=== PATIENT | male | born 1985 | race Caucasian/White ===

== ENCOUNTER 2022-12-01 09:05 | Outpatient (CLI) | payer BC, SELFPAY ==
[2022-12-01 09:45] LABS: Basophils Percent Auto 0.4 % (0.2-1.2); Eosinophils Absolute Auto 0.5 K/mm3 (0-0.3); Eosinophils Percent Auto 8.3 % (0-4.4); Hematocrit 44.4 % (42.0-52.0); Hemoglobin 15.5 g/dL (14.0-18.0); Immature Granulocyte Absolute 0.01 K/mm3 (0.00-0.031); Immature Granulocyte Percent A 0.2 % (0-0.5); Lymphocytes Absolute Auto 1.32 K/mm3 (0.9-3.2); Lymphocytes Percent Auto 23.3 % (18.3-44.2); Mean Corpuscular HGB Conc 34.9 g/dl (32-36); Mean Corpuscular Hemoglobin 30.5 pg (26-34); Mean Corpuscular Volume 87.4 fl (80-100); Mean Platelet Volume 9.4 fl (7.4-10.4); Monocytes Absolute Auto 0.5 K/mm3 (0.1-0.6); Monocytes Percent Auto 9.5 % (2.6-8.5); Neutrophils Absolute Auto 3.3 K/mm3 (1.3-6.7); Neutrophils Percent Auto 58.3 % (45.5-73.1); Platelet Count Result 195 k/mm3 (150-375); Red Blood Count 5.08 M/mm3 (4.6-6.20); Red Cell Distribution Width 11.9 % (11.5-14.5); White Blood Count 5.7 K/mm3 (4.5-10.0)
[2022-12-01 09:52] LABS: Alanine Aminotransferase 28 U/L (6-50); Albumin Level 4.1 g/dL (3.5-5.1); Alkaline Phosphatase 45 U/L (38-126); Anion Gap 3 mmol/L (8-16); Aspartate Amino Transferase 26 U/L (17-59); Bilirubin,Total 0.5 mg/dL (0.2-1.3); Blood Urea Nitrogen 19 mg/dL (9-20); Calcium 8.5 mg/dL (8.4-10.2); Carbon Dioxide 32 mmol/L (22-30); Chloride 105 mmol/L (98-107); Cholesterol 160 mg/dL (0-200); Estimated Glomerular Filt Rate > 60; Glucose 99 mg/dL (65-110); HDL Direct 40 mg/dL; Potassium 4.3 mmol/L (3.4-5.0); Sodium 140 mmol/L (137-145); Triglycerides 93 mg/dL (<150)
[2022-12-01 10:03] LABS: LDL Cholesterol Direct 89 mg/dL
== END 2022-12-01 09:06 | disposition home or self-care (01) ==
LOC: ANHLAB 09:12
PROVIDERS: PCP Nurse Practitioner Family; Visit Provider Nurse Practitioner Family
DX: R07.89 Other chest pain (principal)
CPT/HCPCS: 36415; 80053; 80061; 84443; 85025

== ENCOUNTER 2022-12-03 15:02 | Outpatient (CLI) | payer BC, SELFPAY ==
--- NOTE | 2022-12-03 | ECG_ITS ---
Measurements Intervals [place] Rate: 81 P: 51 NC: 145 QRS: 12 QRSD: 98 T: 26 QT: 343 QTc: 398 Interpretive Statements SINUS RHYTHM NORMAL ECG NO PREVIOUS ECG AVAILABLE FOR COMPARISON Electronically Signed On 12-04-2022 10:01:44 BRIQUETTE MACHINE OPERATOR by Wilfredo Thomas M.D.
== END 2022-12-03 15:03 | disposition home or self-care (01) ==
PROVIDERS: PCP Nurse Practitioner Family; Visit Provider Nurse Practitioner Family
DX: R07.89 Other chest pain (principal)
CPT/HCPCS: 93005

== ENCOUNTER 2022-12-31 14:11 | Outpatient (CLI) | payer BC, SELFPAY ==
--- NOTE | 2022-12-31 | ECHO_ITS ---
Patient Info Name: Mart Corral Age: 37 years : 1985 Gender: Male Ht: 69 in Wt: 192 lbs BSA: 2.08 m2 HR: 88 bpm BP: 130 / 94 mmHg Heart Rhythm: Sinus Rhythm Technical Quality: Fair Exam Date: 12/31/2022 2:59 PM Exam Location: [facility] Pulmonary Patient Status: Outpatient Admit Date: 12/31/2022 Staff Ordering Physician: PhuMelva Change Management: Danika Castellano RDCS Attending Provider: Phu, Melva DONG Referring Physician: Phu POLLOCK; Exam Type: CA echo doppler color flow Study Info Indications R07.9 - Chest pain, unspecified Complete two-dimensional, color flow and Doppler transthoracic echocardiogram is performed. Summary 1. Complete two-dimensional, color flow and Doppler transthoracic echocardiogram is performed. 2. Left ventricular chamber dimension is normal. 3. Left ventricular systolic function is normal, estimated at 65-70%. 4. There is mildly increased left ventricular wall thickness. 5. The left ventricular diastolic function is grade I diastolic dysfunction. 6. Right ventricular systolic function is normal. 7. No significant valvular disease. Left Ventricle Left ventricular chamber dimension is normal. Left ventricular systolic function is normal, estimated at 65-70%. There is mildly increased left ventricular wall thickness. The left ventricular diastolic function is grade I diastolic dysfunction. Right Ventricle Right ventricular chamber dimension is normal. Right ventricular systolic function is normal. Left Atria Left atrial chamber dimension is normal. Right Atria Right atrial chamber dimension is normal. Atrial Septum Intact interatrial septum visualized by color flow imaging. Aortic Valve The aortic valve is probable trileaflet. There is no aortic valve stenosis. There is no aortic valve regurgitation. Pulmonic Valve The pulmonic valve is not well visualized. Mitral Valve The mitral valve has normal leaflets. There is no mitral valve stenosis. There is trace mitral valve regurgitation. Tricuspid Valve There is trace tricuspid valve regurgitation. Pericardium/Pleural There is no pericardial effusion. Inferior Vena Cava Normal inferior vena cava with >50% collapse upon inspiration consistent with normal right atrial pressure, 3 mmHg. Aorta The aortic root size at the sinus of Valsalva is normal. Left Ventricular Outflow Tract Name Value Normal LVOT 2D LVOT Diameter 2.0 cm LVOT Doppler LVOT Peak Gradient 4 mmHg LVOT Mean Gradient 2 mmHg LVOT VTI 17 cm LVOT VTI/AV VTI Ratio 0.7 LVOT Stroke Volume 57 ml LVOT CO 4.2 l/min LVOT CI 2.0 l/min/m2 Pulmonic Valve Name Value Normal RVOT Doppler
== END 2022-12-31 14:12 | disposition home or self-care (01) ==
PROVIDERS: PCP Nurse Practitioner Family; Visit Provider Nurse Practitioner Family
DX: R07.9 Chest pain, unspecified (principal)
CPT/HCPCS: 93306

== ENCOUNTER 2024-02-08 07:29 | Outpatient (CLI) | payer BC, SELFPAY ==
[2024-02-08 20:38] LABS: Hematocrit 48.6 % (42.0-52.0); Hemoglobin 15.2 g/dL (14.0-18.0); Mean Corpuscular HGB Conc 31.3 g/dl (32-36); Mean Corpuscular Hemoglobin 30.4 pg (26-34); Mean Corpuscular Volume 97.2 fl (80-100); Mean Platelet Volume 10.6 fl (7.4-10.4); Platelet Count Result 213 k/mm3 (150-375); Red Cell Distribution Width 12.6 % (11.5-14.5); White Blood Count 5.9 K/mm3 (4.5-10.0)
[2024-02-08 20:47] LABS: Alanine Aminotransferase 27 U/L (6-50); Albumin Level 4.6 g/dL (3.5-5.1); Alkaline Phosphatase 59 U/L (38-126); Anion Gap 4 mmol/L (4-12); Aspartate Amino Transferase 60 U/L (17-59); Bilirubin,Total 0.6 mg/dL (0.2-1.3); Blood Urea Nitrogen 27 mg/dL (9-20); Calcium 9.6 mg/dL (8.4-10.2); Carbon Dioxide 29 mmol/L (22-30); Chloride 107 mmol/L (98-107); Cholesterol 154 mg/dL (0-200); Estimated Glomerular Filt Rate > 60; Glucose 96 mg/dL (65-110); HDL Direct 47 mg/dL; Potassium 4.7 mmol/L (3.4-5.0); Sodium 140 mmol/L (137-145); Triglycerides 50 mg/dL (<150)
[2024-02-08 20:58] LABS: LDL Cholesterol Direct 84 mg/dL
[2024-02-08 21:16] LABS: Thyroid Stimulating Hormone 0.949 uIU/mL (0.465-4.680)
[2024-02-08 21:52] LABS: Folic Acid 8.7 ng/mL (2.76->20)
[2024-02-13 14:40] LABS: Testosterone Free 85.8 pg/mL (35.0-155.0); Testosterone Total 721 ng/dL (250-1100)
== END 2024-02-08 07:30 | disposition home or self-care (01) ==
LOC: ANHBWCLAB 07:31
PROVIDERS: PCP Nurse Practitioner Adult Health; Visit Provider Nurse Practitioner Adult Health
DX: R53.83 Other fatigue (principal); Z13.9 Encounter for screening, unspecified
CPT/HCPCS: 36415; 80053; 80061; 82607; 82746; 84402; 84403; 84443; 85027

== ENCOUNTER 2025-02-06 06:58 | Outpatient (CLI) | payer BC, SELFPAY ==
--- OUTSIDE RECORDS SUMMARY | 2025-02-06 07:01 | XMS_ITS | Referral Summary ---
Author Organization 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 Gender Identity Not on file Sexual Orientation Not on file Last Filed Vital Signs Vital Sign Reading Time Taken Comments Blood Pressure 127/91 08/17/2019 9:30 PM CDT Pulse 77 08/17/2019 9:30 PM CDT Temperature 36.4 C (97.6 F) 08/17/2019 4:48 PM CDT Respiratory Rate 20 08/17/2019 9:30 PM CDT Oxygen Saturation 97% 08/17/2019 9:30 PM CDT Inhaled Oxygen Concentration - - Weight 97.5 kg (215 lb) 08/17/2019 4:48 PM CDT Height 175.3 cm (5' 9 ) 08/17/2019 4:48 PM CDT Body Mass Index 31.75 08/17/2019 4:48 PM CDT Plan of Treatment Not on file Insurance [email or web address] [facility] WORKERS COMPENSATION GENERIC Care Teams Top Cager Relationship Specialty Start Date End Date No, Physician PCP - General 08/17/19
--- OUTSIDE RECORDS SUMMARY | 2025-02-06 07:01 | XMS_ITS | Continuity of Care Document ---
Author Organization [facility] [employer] [facility] Address [address] [place] [address] Phone Care Team Providers Care Patient Admitting Clerk Name Role Phone Wero Pereyra DMD Unavailable Unavailable Procedures Procedure Date Intraoral Periapical First Ishan 11 Limit Oral Eval-prob Focused OFFICE/OUTPATIENT VISIT, [facility] Advance Directives Directive Yes / No Effective Date File Name No Information Encounters Encounter Description Practice Location Reason(s) For Visit Diagnoses Date Provider Providers Copied on Encounter [facility] [employer] [facility], [address], [place], [place], [id number], tel:[phone] [facility] Dental examination [address], [place], [place], [id number], . tel:[phone] Referring Provider: Wero Garg, [address], [place], [address] . tel:[phone] OFFICE/OUTPAT IENT VISIT, [facility] [employer] [facility], [address], [place], [place], [id number], tel:[phone] Counts Include [facility] No Information 0 No Information Referring Provider: Oscar Spencer, [address], [place], [address] . tel:[phone] Family History Family Member Type Diagnosis Age At Onset No Information Payers Payer name Insurance type Covered green party ID Authorjohannaa cal(s) D [employer] CI [id number] Social History Type Description Quantity Date Captured Comments Sex Male Smoking Status No Information Chief Complaint And Reason For Visit No Information Reason For Referral Reason For Referral No Information History Of Present Illness Encounter Date Complaint History Of Prese nt Illness No Information Functional Status Date Functional Assessmen t No Information Instructions Date Instruction Additional Infor mation No Information Assessments Type Assessment Date No Information Patient Care Teams Name Effective Dates (start - stop) Status Members No Information
--- OUTSIDE RECORDS SUMMARY | 2025-02-06 07:01 | XMS_ITS | Continuity of Care Document ---
Author Organization [facility] Address [address] [place] [address] Phone Care Team Providers Care Syrup Maker Cook Name Role Phone Stevenson Burleson MD Unavailable Unavailable Allergies, Adverse Reactions, Alerts Substance Reaction Status Criticality No Known Allergies Active No Inform ation Medications Medication Instructions Dosage Effective Dates (start - stop) Status Comments ibuprofen 800 mg tablet take 1 Tablet by Oral route 3 times every day 1 Tablet - Active Procedures Procedure Date Office/outpatient visit,[facility] 2014 Special Casting Material (Plaster) Hand Metacarpal Fx Single,Trtmt W/o Rosales p Arm, Forearm Splint Application, Static Cast Supplies,Short Arm Splint,Plaster,A dult Advance Directives Directive Yes / No Effective Date File Name No Information Encounters Encounter Description Practice Location Reason(s) For Visit Diagnoses Date Provider Providers Copied on Encounter Office/outpat ient visit,[facility], [address] [place] [address], [id number], tel:[phone] [facility] hand (chief complaint) Pain In HandFx Metacarp Bone(s), Base - Closed Benjy Gamino. [address] [place] [address], [id number], . tel:[phone] Family History Family Member Type Diagnosis Age At Onset No Information Payers Payer name Insurance type Covered constitution party ID Authoriza tion(s) [facility] [id number] Social History Type Description Quantity Date Captured Comments Alcohol Use Details Unknown Caffeine Use Details Unknown Tobacco Use Status Smoking Status Current every day smoker Non-Smoking Tobacco Use Details : No Details Available : No Details Available Sex Male Vital Signs Date / Time: Height Weight BMI Pulse Rate Blood Pressure Temperature Respiratory Rate Body Surface Area Head Circumference Head Circ. Percentile Wt./Haseeb. Percentile BMI percentile Pulse Ox Inhaled Ox 9:35 AM 69.00 in 72.212 kg (159.20 lbs) 23.5 1 kg/m eter (2) 62 /min 129/85 mm[Hg] 98.10 F Chief Complaint And Reason For Visit From encounter dated '04/24/2015 09:00'. hand (chief complaint) Reason For Referral Reason For Referral No Information History Of Present Illness Encounter Date Complaint History Of Prese nt Illness hand Functional Status Date Functional Assessmen t No Information Instructions Date Instruction Additional Infor cain Patient was educated on the diagnosis and treatment plan. Related to Pain In Hand activities as tolera giuliana, no use lt hand, must keep splint dry,rtc in 4wks Related to Pain In Hand Assessments Type Assessment Date assessment Pain In Hand assessment Fx Metacarp Bone(s), Base - Clos ed Patient Care Teams Name Effective Dates (start - stop) Status Members No Information
--- OUTSIDE RECORDS SUMMARY | 2025-02-06 07:01 | XMS_ITS | Clinical Summary ---
Author Organization 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 Gender Identity Not on file Sexual Orientation Not on file Obstetrics History Last Filed Vital Signs Vital Sign Reading [...] 08/17/2019 4:48 PM CDT Plan of Treatment Health Maintenance Due Date Last Done Comments Depression Screening 1985 Hepatitis C Screening 1985 DTaP/Tdap/Td Vaccine (5 - Tdap) 02/09/1996 06/21/1990, 04/25/1986, 1985, Additional history exists Varicella Vaccines (1 of 2 - 13+ 2-dose series) 1998 Hepatitis B Screening 2003 Regular Well Visit/Exam 18-64 2003 Pneumococcal vaccine <65 (1 of 2 - PCV) 02/09/2004 Influenza Vaccine (Season Ended) 2025 HPV Vaccines Aged Out No longer eligi ble based on patient's age to complete this topic Insurance [employer] COMPENSATION GENERIC Care Teams Security Director Relationship Specialty Start Date End Date No, Physician PCP - General 08/17/19
--- OUTSIDE RECORDS SUMMARY | 2025-02-06 07:01 | XMS_ITS | Clinical Summary ---
Author Organization [employer] [facility] Address [address] [place] [address] Care Team Providers Care Biology Intern Name Role Phone Unavailable Primary Care Provider Unavailabl e Medications ALPRAZolam (XANAX) 0.5 mg tablet 10/27/2022 Activ e ibuprofen (MOTRIN) 800 mg tablet 11/27/2022 Activ e tiZANidine (ZANAFLEX) 4 mg Tablet 11/27/2022 Active Active Problems Problem Noted Date Diagnosed Date Chronic midline low back pain with left-sided sc iatica 12/01/2022 Degeneration of lumbar intervertebral disc 12/01 Other spondylosis with radiculopathy, lumbar reg ion 12/01/2022 Social History Tobacco Use Types Packs/Day Years Used Date Smoking Tobacco: Never Tobacco Cessation:Counseling Given: Not Answered Sex and Gender Information Value Date Recorded Sex Assigned at Not on file Legal Sex Male 3:07 PM RN FIRST ASSIST Gender Identity Not on file Sexual Orientation Not on file Last Filed Vital Signs Vital Sign Reading Time Taken Comments Blood Pressure 140/86 12/01/2022 2:22 PM RN FIRST ASSIST Pulse 106 12/01/2022 2:22 PM RN FIRST ASSIST Temperature - - Respiratory Rate - - Oxygen Saturation 98% 12/01/2022 2:22 PM RN FIRST ASSIST Inhaled Oxygen Concentration - - Weight 91.1 kg (200 lb 12.8 oz) 12/01/2022 2:22 PM RN FIRST ASSIST Height - - Body Mass Index - - Plan of Treatment Health Maintenance Due Date Last Done Comments DTAP/TDAP/TD VACCINES (1 - Tdap) 02/09/2004 HEPATITIS B VACCINES (1 of 3 - 19+ 3-dose series) 02/09/2004 INFLUENZA VACCINE (#1) 2024 HPV VACCINES Aged Out No longer eligi ble based on patient's age to complete this topic PNEUMOCOCCAL VACCINE 0-49 YEARS Aged Out No longer eligible based on patient's age to complete this topic Insurance [facility] BLUE ACCESS/TRUE BLUE PPO
--- OUTSIDE RECORDS SUMMARY | 2025-02-06 07:01 | XMS_ITS | Data Portability ---
Author Organization [facility] [facility], Main Office Address [address] [place] [address] Assessment No assessment recorded. Plan of Treatment Reminders Order Date Submit Date Provider Last Modified By Organization Details Last Modified Time Details Appointments None recorded. Lab None recorded. Referral None recorded. Procedures None recorded. Surgeries None recorded. Imaging None recorded. Medication Orders meloxicam 15 mg tablet 2022 023 [facility] #[id number], [address], [place], [place], [id number], 3 17:07:15 hydroxyzine HCl 25 mg tablet 2022 023 [facility] #[id number], [address], [place], [id number], 3 17:07:17 sertraline 25 mg tablet 2022 023 [facility] #[id number], [address], [place], [place], [id number], 3 17:07:16 meloxicam 15 mg tablet 2022 023 [facility] #[id number], [address], [place], [id number], 3 16:35:55 hydroxyzine HCl 25 mg tablet 2022 023 [facility] #[id number], [address] [place], [id number], 3 16:35:54 Patient TargetsNo targets recorded. Patient Instructions Encounter Date Encounter Id Patient Instructions Last Modified By Organization Details Last Modified Time 02/05/2023 [id number] Fu in 6 mo anxiety and back pain Not available 02/05/2023 16:39:24 09/02/2023 [id number] 6 week fu anxiet y med check. Not available 09/02/2023 17:11:19 Reason for Referral None Reported. Results Created Date Observation Date Name Description Value Unit Range Abnormal Flag Note LastModifiedBy Organization Detail LastModifiedTime 12/04/1912/03/2022 janis amin am No observ ation record ed. [id number] [facility] (Neurology) [address] [place] [address] [address], [place], [address], 12/31/2022 21:30:05 Result Notes None recorded. Problems Name Problem SNOMED Code Status Onset Date Resolution Date Notes Provider Name and Address Organization Details Recorded Time Otalgia of left ear 9078113325 Active 2021 Not Available [facility] 3 21:28:52 Impacted cerumen in left ear 2034510464297 101 Active 2021 Not Available [facility] 3 21:28:52 Prolapsed lumbar interverte bral disc 604015730 Active 2022 Not Available [facility] 3 21:28:52 Overweight 435835546 Active 2021 Not Available [facility] 3 21:28:52 Headache 98236234 Active 2020 Not Available [facility] 3 21:28:52 Low back pain 986965854 Active 2018 Not Available [facility] 3 21:28:52 Chest discomfort 528710877 Active 2022 Not Available [facility] 3 21:28:52 Chest pain 03384505 Active 2018 Not Available [facility] 3 21:28:52 Left foot drop 3266199137666 Active 2022 Not Available [facility] 3 21:28:53 Medial epicondyli tis of right elbow joint 8367057716236 09 Active 2020 Not Available [facility] 3 21:28:53 Vitamin D deficiency 27656436 Active 2020 Not Available [facility] 3 21:28:53 Elevated blood-pres sure reading without diagnosis of hypertensi on 457206757 Active 2020 Not Available [facility] 3 21:28:53 Obese 753883702 Active 2020 Not Available [facility] 3 21:28:53 Obesity 988060302 Active 2018 Not Available [facility] 3 21:28:53 Anxiety 86976566 Active 2018 Not Available [facility] 3 21:28:53 Electronic cigarette user 151050958 Active 2020 Not Available [facility] 3 21:28:54 Hyperglyce yolanda 37146995 Active 2020 Not Available [facility] 3 21:28:54 Chronic low back pain 856426760 Active 2022 Melva Bay NP [address], [address] , [facility] 3 16:34:15 Gastroente ritis 87599254 Active 2022 Melva Bay NP [address] [address], [place], [address] , [facility] 3 16:35:55 Problem Notes None recorded. Procedures Surgical History None recorded. Imaging Results Imaging Date Name Status LastModified by Organization Details LastModified Time 12/03/2022 electrocardiogram completed MIGRATION. [id number] [facility] (Neurology) [address] [facility] [address], [place], [address], 12/31/2022 21:30:05 Procedure Notes None recorded. Medical Equipment None Reported. Allergies No known drug allergies Medications Name Sig Start Date Stop Date Status Note LastModified by Organization Details LastModified Time prednisone 10 mg tablet 09/09 completed Not Available Not Available Not Available clindamycin HCl 300 mg capsule 09/06 completed Not Available Not Available Not Available ibuprofen 800 mg tablet TAKE 1 TABLET BY MOUTH EVERY 6 TO 8 HOURS NEEDED 02/05 completed Not Available Not Available Not Available tizanidine 4 mg tablet 02/05 completed Not Available Not Available Not Available meloxicam 15 mg tablet TAKE 1 TABLET BY MOUTH EVERY DAY active Not Available Not Available No t Available acetaminoph en 300 mg-codeine 30 mg tablet 09/06 completed Not Available Not Available Not Available alprazolam 0.5 mg tablet 12/11 completed Not Available Not Available Not Available amoxicillin 875 mg tablet TAKE 1 TABLET BY MOUTH TWICE DAILY UNTIL GONE 09/06 completed Not Available Not Available Not Available lorazepam 2 mg tablet TAKE 1 TABLET BY MOUTH 1 HOURS PRIOR TO APPT 09/06 completed Not Available Not Available Not Available buspirone 10 mg tablet Take 1 tablet twice a day by oral route as needed. active Not Available Not Available No t Available sertraline 25 mg tablet Take 1 tablet every day by oral route. 2022 active Not Available Not Available Not Avai lable hydroxyzine HCl 25 mg tablet Take 1 tablet 3 times a day by oral route. 2022 active Not Available Not Available Not Avai lable mupirocin 2 % topical ointment 09/09 completed Not Available Not Available Not Available methylpredn isolone 4 mg tablets in a dose pack FOLLOW PACKAGE DIRECTION S 11/05 completed Not Available Not Available Not Available amoxicillin 875 mg-potassiu m clavulanate 125 mg tablet 11/12 completed Not Available Not Available Not Available neomycin-po lymyxin-hyd rocort 3.5 mg-10,000 unit/mL-1 % ear drops,susp SHAKE LIQUID AND INSTILL 4 DROPS TO AFFECTED EAR THREE TIMES DAILY 02/05 completed Not Available Not Available Not Available duloxetine 30 mg capsule,del ayed release Take 1 capsule every day by oral route. 02/05 completed Not Available Not Available Not Available Vitals Date Recorded Body mass index (BMI) Body height Oxygen saturation Oxygen saturation in Arterial blood by Pulse oximetry Heart rate Respiratory rate Body temperature Body weight Systolic blood pressure Diastolic blood pressure Provider Name and Address Organization Details Last Updated DateTime 2 29.9 kg/m2 175.26 cm 98 % 98 % 90 /min 20 /min 99.3 [degF] 24628.7 1 g 130 mm[Hg] 80 mm[Hg] Not Available [facility] 3 21:28:44 Date Recorded Body mass index (BMI) Body height Oxygen saturation Oxygen saturation in Arterial blood by Pulse oximetry Heart rate Body temperature Body weight Systolic blood pressure Diastolic blood pressure Systolic blood pressure Diastolic blood pressure Provider Name and Address Organization Details Last Updated DateTime 3 29.9 kg/m2 175.26 cm 97 % 97 % 100 /min 98.3 [degF] 06472.3 8 g 140 mm[Hg] 99 mm[Hg] 138 mm[Hg] 88 mm[Hg] Not Available [facility] 3 21:28:45 Date Recorded Body mass index (BMI) Body height Oxygen saturation Oxygen saturation in Arterial blood by Pulse oximetry Heart rate Respiratory rate Body temperature Body weight Systolic blood pressure Diastolic blood pressure Provider Name and Address Organization Details Last Updated DateTime 3 29.7 kg/m2 175.26 cm 97 % 97 % 91 /min 16 /min 98.4 [degF] 81773.4 3 g 135 mm[Hg] 96 mm[Hg] Not Available [facility] 3 21:28:45 Date Recorded Body height Body mass index (BMI) Body weight Body temperature Heart rate Respiratory rate Oxygen saturation Oxygen saturation in Arterial blood by Pulse oximetry Pain severity - 0-10 verbal numeric rating [Score] - Reported Systolic blood pressure Diastolic blood pressure Provider Name and Address Organization Details Last Updated DateTime 3 175.26 cm 27.9 kg/m2 19689.6 6 g 98 [degF] 84 /min 16 /min 97 % 97 % 0 122 mm[Hg] 72 mm[Hg] Melva Hdez RN [place] [facility] 3 16:24:52 Date Recorded Body height Body mass index (BMI) Body weight Body temperature Heart rate Respiratory rate Oxygen saturation Oxygen saturation in Arterial blood by Pulse oximetry Pain severity - 0-10 verbal numeric rating [Score] - Reported Systolic blood pressure Diastolic blood pressure Provider Name and Address Organization Details Last Updated DateTime 3 175.26 cm 25.8 kg/m2 33487.5 2 g 96.7 [degF] 67 /min 16 /min 97 % 97 % 0 142 mm[Hg] 66 mm[Hg] Melva Hdez RN [place] - [facility] 3 16:30:09 Social History Question Answer Notes LastModified by Organizat ion Details LastModified Time Tobacco Smoking Status Never Smoker Not Available [facility] 12/31/2022 21:28:12 Do You Have An Advance Directive? No [id number] Information not available 12/31/2022 What Is Your Level Of Alcohol Consumption? None MIGRATION.91808 61690 Information not available 12/31/2022 Do You Wear A Helmet When Biking? No MIGRATION.69147 57583 Information not available 12/31/2022 Is Blood Transfusion Acceptable In An Emergency? Yes Information not available 02/05/2023 What Is Your Level Of Caffeine Consumption? Moderate MIGRATION.33473 [id number] Information not available 12/31/2022 What Is Your Code Status? Full Code Information not available 02/05/2023 In The 14 Days Before Symptom Onset, Have You Had Close Contact With A Laboratory-confi rmed COVID-19 While That Case Was Ill? No MIGRATION.63723 33649 Information not available 12/31/2022 In The 14 Days Before Symptom Onset, Have You Had Close Contact With A Person Who Is Under Investigation For COVID-19 While That Person Was Ill? No MIGRATION.58967 00306 Information not available 12/31/2022 What Type Of Diet Are You Following? REGULAR MIGRATION.67824 40787 Information not available 12/31/2022 Do You Or Have You Ever Used E-cigarettes Or Vape? Current User Of Electronic Cigarettes MIGRATION.63823 85180 Information not available 12/31/2022 What Is Your Occupation? [employer] MIGRATION.16794 16134 Information not available 12/31/2022 How Many Days Of Moderate To Strenuous Exercise, Like A Brisk Walk, Did You Do In The Last 7 Days? 5 Information not available 02/05/2023 On Those Days That You Engage In Moderate To Strenuous Exercise, How Many Minutes, On Average, Do You Exercise? 90 Information not available 02/05/2023 Have There Been Any Changes To Your Family Or Social Situation? No MIGRATION.87112 99005 Information not available 12/31/2022 What Is The Fluoride Status Of Your Home? Unknown MIGRATION.15722 58907 Information not available 12/31/2022 Are There Any Guns Present In Your Home? No MIGRATION.04484 26902 Information not available 12/31/2022 Do You Use Insect Repellent Routinely? Yes MIGRATION.95792 49165 Information not available 12/31/2022 [facility] M[facility].66478 61660 Information not available 12/31/2022 Do You Have A Medical Power Of Maintenance Manager? No MIGRATION.61331 03021 Information not available 12/31/2022 How Many Children Do You Have? 3 Information not available 02/05/2023 Do You Have Any Pets? No MIGRATION.44819 16873 Information not available 12/31/2022 What Is Your Relationship Status? Single MIGRATION.74356 29222 Information not available 12/31/2022 Do You Use Your Seat Belt Or Car Seat Routinely? Yes MIGRATION.07458 00025 Information not available 12/31/2022 Do You Have Smoke And Carbon Monoxide Detectors In Your Home? Yes MIGRATION.73807 62100 Information not available 12/31/2022 Are You Passively Exposed To Smoke? No MIGRATION.37575 21646 Information not available 12/31/2022 Do You Or Have You Ever Used Smokeless Tobacco? Never Used Smokeless Tobacco MIGRATION.92832 02912 Information not available 12/31/2022 Are There Any Smokers In Your House? No MIGRATION.65109 60973 Information not available 12/31/2022 Do You Participate In Social Media? Yes MIGRATION.33611 98759 Information not available 12/31/2022 Do You Feel Stressed (tense, Restless, Nervous, Or Anxious, Or Unable To Sleep At Night)? [id number] Information not available 09/02/2023 Do You Use Any Illicit Or Recreational Drugs? No MIGRATION.70652 97331 Information not available 12/31/2022 Do You Use Sunscreen Routinely? Yes MIGRATION.30845 18413 Information not available 12/31/2022 Has Tobacco Cessation Counseling Been Provided? No MIGRATION.83384 49893 Information not available 12/31/2022 Have You Recently Traveled Abroad? No MIGRATION.15723 52945 Information not available 12/31/2022 Are You Currently In School? No MIGRATION.23627 04703 Information not available 12/31/2022 Do You Have Any Dietary Restrictions? No MIGRATION.87736 94597 Information not available 12/31/2022 Do You Or Have You Ever Used Any Other Forms Of Tobacco Or Nicotine? Yes MIGRATION.02883 31688 Information not available 12/31/2022 Sex: Male Functional Status Question Answer Note LastModified by Organization D etails LastModified Time What is your exercise level? Moderate Information not available 02/05/2023 Mental Status None recorded. Family History Relationship Description Onset Age of this Age Resolved Age Notes LastModified by Organization Details LastModified Time Father Hypertensive disorder [id number] Not available 12/31/2022 21:28:18 Mother Hypertensive disorder [id number].111 [id number] Not available 12/31/2022 21:28:18 Mother Heart disease [id number].064 [id number] Not available 12/31/2022 21:28:18 Maternal Grandfather Myocardial infarction 36 36 MIGRATION.582 [id number] Not available 12/31/2022 21:28:18 Paternal Grandfather Leukemia [email or web address] Not available 11/2022 16:07:34 Medical History No medical history recorded. Past Encounters Encounter ID Performer Location Encounter Start Date Encounter Closed Date Diagnosis/Indication Diagnosis SNOMED-CT Code Diagnosis ICD10 Code Diagnosis Note [id number] [facility] [address] [place] [address] 1 09/06/2021 00:00:00 09/06/2021 11:35:34 [id number] [facility] [address] [place] [address] 1 09/09/2021 00:00:00 09/09/2021 11:03:04 [id number] [facility] [address] [place] [id number] 1 09/18/2021 00:00:00 09/18/2021 17:14:[id number] [address] 11/05/2021 00:00:00 11/05/2021 11:23:[id number] [address] 03/13/2022 00:00:00 03/13/2022 15:23:[id number] [address] 11/12/2022 00:00:00 11/12/2022 17:18:[id number] [address] 12/11/2022 00:00:00 12/11/2022 16:41:14 [id number] Melva Bay NP [address] [address] 02/05/2023 16:00:28 02/05/2023 16:54:01 Chronic low back pain 865833490 M54.50 meloxicam 15 mg po daily Anxiety 71056703 F41.9 hydroxyzin e 25 mg po tid prn. Gastroenteritis 63516333 K52.9 Diet mods. Not to return to work until diarrhea and chill free for 24 hours without the use of NSAID. [id number] Melva Bay NP [address] [address] 09/02/2023 16:05:45 09/02/2023 17:13:54 Chronic low back pain 854493839 M54.50 meloxicam 15 mg po daily Anxiety 03080873 F41.9 sertraline 25 mg po daily.Hydr oxyzine prn. caution for fatigue Gastroenteritis 45461775 K52.9 Diet mods. Not to return to work until diarrhea and chill free for 24 hours without the use of NSAID. Health Concerns Section Related Observation LastModified by Organization Detai ls LastModified Time None Recorded Concern Status LastModified by Organization Details LastModified Time None Recorded Advance Directives Directive N: Payers Encounter Date Sequence Insurance Name Policy Number Policy Morris Covered Member ID Morris Member ID Guarantor Name 02/05/2023 1 [employer] [id number] Mart Corral [id number] Mart Corral 09/02/2023 1 [place] [id number] Mart Corral [id number] Mart Corral Notes Date Note Type Note Provider Name and Address Organization Details Recorded Time 02/05/2023 text/html Here for 2 mo check up. Anxiety- stopped duloxetine. [place] dizzy and tired. Hydroxyzine doing well to stop braindizziness- no more.117/70. Changed diet. Lost 15 lbs. No chest discomfort. ECHO- diastollic dysfunction. This month is 1 year since stress of kids mother. Stomach feels upset. Headache this morning. doesn't feel like covid. Had covid 4 times. Occasional back pain. Using Melva Bay NP [address], [place], [address], [employer] 02/05/2023 16:55:47 09/02/2023 text/html Here for follow up on meds. Chronic low back pain (meloxicam) - Pain management doctor recently refilled. No issues. Anxiety (hydroxyzine) - Can only take it at night because it makes him too sleepy. Falls asleep easy, but has a hard time staying asleep. Only getting about 5 hours of sleep at night. Kids are causing stress (3yo, 5yo, 10yo). Working 60-65 hours a week. Doesn't have any family to help with kids or stress. Getting aggravated with kids recently and he doesn't like that. Potentially interested in change of medication.Tries to go to the gym 4x a week to help with stress. Diet - High protein, low fat, well balanced meals. No sodas, but still has one energy drink per day. Quit pre workout supplements. Drinking lots of water. Denies any alcohol use. BP Rechecked at 130/70. Melva Bay NP [address], [place], [address], [facility] 09/02/2023 17:14:11
[2025-02-06 20:07] LABS: Hematocrit 51.3 % (42.0-52.0); Hemoglobin 16.7 g/dL (14.0-18.0); Mean Corpuscular HGB Conc 32.6 g/dl (32-36); Mean Corpuscular Hemoglobin 30.5 pg (26-34); Mean Corpuscular Volume 93.8 fl (80-100); Mean Platelet Volume 10.1 fl (7.4-10.4); Platelet Count Result 232 k/mm3 (150-375); Red Blood Count 5.47 M/mm3 (4.6-6.20); Red Cell Distribution Width 12.3 % (11.5-14.5); White Blood Count 6.2 K/mm3 (4.5-10.0)
[2025-02-06 22:05] LABS: Alanine Aminotransferase 37 U/L (6-50); Albumin Level 4.7 g/dL (3.5-5.1); Alkaline Phosphatase 56 U/L (38-126); Anion Gap 7 mmol/L (4-12); Aspartate Amino Transferase 48 U/L (17-59); Bilirubin,Total 0.8 mg/dL (0.2-1.3); Blood Urea Nitrogen 26 mg/dL (9-20); Calcium 9.4 mg/dL (8.4-10.2); Carbon Dioxide 32 mmol/L (22-30); Chloride 101 mmol/L (98-107); Cholesterol 184 mg/dL (0-200); Estimated Glomerular Filt Rate > 60; Glucose 92 mg/dL (65-110); HDL Direct 53 mg/dL; Potassium 4.4 mmol/L (3.4-5.0); Sodium 140 mmol/L (137-145); Triglycerides 57 mg/dL (<150)
[2025-02-06 22:16] LABS: LDL Cholesterol Direct 100 mg/dL
[2025-02-06 22:34] LABS: Thyroid Stimulating Hormone 0.999 uIU/mL (0.465-4.680)
== END 2025-02-06 06:59 | disposition home or self-care (01) ==
LOC: ANHBWCLAB 06:59
PROVIDERS: PCP Nurse Practitioner Adult Health; Visit Provider Nurse Practitioner Adult Health
DX: Z13.9 Encounter for screening, unspecified (principal); R53.83 Other fatigue
CPT/HCPCS: 36415; 80053; 80061; 84402; 84403; 84443; 85027